=== PATIENT | male | born 1970 | race Caucasian/White ===

== ENCOUNTER 2019-01-17 15:17 | Inpatient (IN) | payer OTHER ==
[~2019-01-17] VITALS: Ht 182.9 cm; Wt 90.0 kg
[2019-01-17 15:30] LABS: BASOPHILS ABSOLUTE AUTO 0.13 K/mm3 (0.00-0.23); BASOPHILS PERCENT AUTO 1 % (0-2); EOSINOPHILS PERCENT AUTO 2 % (0-6); Hematocrit 47.5 % (37.0-53.0); IMMATURE GRAN ABSOLUTE AUTO 0.05 K/mm3 (0.00-0.10); IMMATURE GRAN PERCENT AUTO 0 % (0-1); LYMPHOCYTES ABSOLUTE AUTO 5.88 K/mm3 (0.84-5.20); LYMPHOCYTES PERCENT AUTO 47 % (21-46); MONOCYTES ABSOLUTE AUTO 1.07 K/mm3 (0.16-1.47); MONOCYTES PERCENT AUTO 9 % (4-13); Mean Corpuscular HGB 35.4 pg (26.0-34.0); Mean Corpuscular HGB Conc 33.7 g/dL (31.5-36.5); Mean Corpuscular Volume 105 fL (80-100); Mean Platelet Volume 8.9 fL (9.1-12.4); NEUTROPHILS ABSOLUTE AUTO 5.27 K/mm3 (1.96-9.15); NEUTROPHILS PERCENT AUTO 42 % (41-73); Platelet Count 256 K/mm3 (150-400); RDW Standard Deviation 50.4 fL (35.1-46.3); Red Blood Cell Count 4.52 M/mm3 (4.30-5.90)
[2019-01-17] MEDS ORDERED: Vitamin B Comple1 EA PO (15:40)
[2019-01-17] MEDS ORDERED: ASCO500 PO (15:40)
[2019-01-17 15:52] LABS: Alanine Aminotransfer (ALT/SGP 72 U/L (12-78); Albumin, Blood 3.1 g/dL (3.4-5.0); Albumin/Globulin Ratio 0.5 (0.8-1.8); Alk Phos 223 U/L (50-136); Anion Gap 8 mmol/L (6-16); Aspartate Aminotrans (AST/SGOT 198 U/L (12-37); Blood Urea Nitrogen 2 mg/dL (8-24); Bun/Creatinine Ratio 3.1 (12.0-20.0); CO2, Blood 25 mmol/L (21-32); Calcium, Blood 8.7 mg/dL (8.5-10.1); Chloride, Blood 106 mmol/L (98-108); Creatinine, Blood 0.65 mg/dL (0.60-1.20); Ethanol (Alcohol), Blood, Med 284 mg/dL; Glomerular Filtration Rate >60 (60-); Glucose, Blood 148 mg/dL (70-99); Potassium, Blood 3.5 mmol/L (3.5-5.5); Salicylate <1.7 mg/dL (2.8-20.0); Sodium, Blood 139 mmol/L (136-145); Total Protein, Blood 9.1 g/dL (6.4-8.2)
[2019-01-17 15:55] LABS: Acetaminophen, Random <2.0 ug/mL (10.0-30.0)
[2019-01-17 16:43] LABS: Source, Urine Clean Catch
[2019-01-17 16:46] LABS: Bilirubin, Urine Neg (Neg); Blood, Urine Neg (Neg); Glucose Qualitative, Urine Neg (Neg); Ketones, Urine Neg (Neg); Leukocyte Esterase, Urine Neg (Neg); Nitrite, Urine Neg (Neg); Protein, Urine Neg (Neg); Specific Gravity, Urine 1.005 (1.003-1.022); Urobilinogen, Urine NORM (Normal)
[2019-01-17 16:54] LABS: Appearance, Urine Clear (Clear); Color, Urine Yellow (P-Yellow)
[2019-01-17 16:58] LABS: U Amphetamine Screen Not Detected; U Barbituate Screen Not Detected; U Benzodiazapine Screen Not Detected; U Buprenorphine Screen Not Detected; U Cannabinoids Screen Not Detected; U Cocaine Screen Not Detected; U Methadone Screen Not Detected; U Methamphetamine Screen Not Detected; U Opiates Screen Not Detected; U Oxycodone Screen Not Detected; U Phencyclidine Screen Not Detected; U Propoxyphene Screen Not Detected
--- NOTE | 2019-01-17 18:41 | NUR ---
PT TRANSFERRED TO ROOM FROM ED. REMOTE MONITORING AND NURSING PACKING SHED SUPERVISOR HAVE BEEN NOTIFIED OF 2 MD HOLD PT. PT IS LETHARGIC BUT VSS. SATTING LOW 90S ON 3L. AT BEDSIDE AND HISTORY RECIEVED. STATES HE HAS NEVER DONE THIS BEFORE BUT HAS A HISTORY OF ALCOHOL AND DEPRESSION. CALL TO DR JUAREZ FOR ADMIT ORDERS, AWAITING CALL BACK.
--- NOTE | 2019-01-17 18:47 | NUR ---
CALL BACK TO ANSWERING SERVICE WHO STATES DR JUAREZ SAID HE WOULD CALL BACK
--- NOTE | 2019-01-17 19:00 | NUR ---
ASSUMED CARE ASSUMED CARE OF PATIENT. SLEEPING WHEN UNDISTURBED. ROUSES TO VERBAL STIMULI. MOVES SELF IN BED WITHOUT DIFFICULTY. DENIES C/O PAIN OR NAUSEA AT THIS TIME. DENIES SUICIDAL IDEATION/INTENT. MONITOR SHOWS NSR, RATE 70s. BP STABLE. REMAINS ON 3L NC WITH O2 SATS 96-97%. RESPIRATIONS EVEN AND UNLABORED AT THIS TIME. SEE SHIFT ASSESSMENT FOR FULL ASSESSMENT.
[2019-01-17 19:37] LABS: Anion Gap 7 mmol/L (6-16); Blood Urea Nitrogen 3 mg/dL (8-24); Bun/Creatinine Ratio 5.4 (12.0-20.0); CO2, Blood 24 mmol/L (21-32); Calcium, Blood 7.8 mg/dL (8.5-10.1); Chloride, Blood 113 mmol/L (98-108); Creatinine, Blood 0.55 mg/dL (0.60-1.20); Glomerular Filtration Rate >60 (60-); Glucose, Blood 98 mg/dL (70-99); Magnesium, Blood 2.1 mg/dL (1.6-2.4); Potassium, Blood 3.9 mmol/L (3.5-5.5); Sodium, Blood 144 mmol/L (136-145)
--- NOTE | 2019-01-17 20:55 | NUR ---
ETOH WITHDRAWAL/CALL TO PT IS WORRIED ABOUT STARTING ETOH WITHDRAWALS. CIWA 0 AT THIS TIME, BUT IS CONCERNED THAT WITHDRAWALS MAY START SOON. CALL TO DR. THOMAS- NEW ORDERS RECEIVED FOR LIBRIUM AND ATIVAN.
--- NOTE | 2019-01-17 22:00 | NUR ---
O2 PT VISITING WITH . SATS 97-98% ON 3L. O2 OFF AT THIS TIME AND SATS ARE 95-96%.
--- NOTE | 2019-01-17 22:44 | NUR ---
CIWA PT C/O FEELING ANXIOUS, NAUSEATED, AND TREMULOUS. CIWA SCORE IS 9 AT THIS TIME. MEDICATED WITH ATIVAN 2MG IV AND LIBRIUM 25MG PO. ALSO STATES THAT HE WANTS TO GO HOME AND WANTS TO KNOW WHAT THE PROCEDURE IS FOR DISCHARGE. PT INFORMED THAT HE IS ON A 2 MD HOLD AT THIS TIME AND WILL BE STAYING UNTIL RELEASED BY PHYSICIAN. PT STATES HE WILL BE COOPERATIVE WITH THAT.
[2019-01-17 23:32] LABS: Anion Gap 7 mmol/L (6-16); Blood Urea Nitrogen 3 mg/dL (8-24); Bun/Creatinine Ratio 4.8 (12.0-20.0); CO2, Blood 25 mmol/L (21-32); Calcium, Blood 7.9 mg/dL (8.5-10.1); Chloride, Blood 111 mmol/L (98-108); Creatinine, Blood 0.63 mg/dL (0.60-1.20); Glomerular Filtration Rate >60 (60-); Glucose, Blood 94 mg/dL (70-99); Potassium, Blood 3.8 mmol/L (3.5-5.5); Sodium, Blood 143 mmol/L (136-145)
--- NOTE | 2019-01-18 00:10 | NUR ---
O2 SATS/SLEEP APNEA PT IS SLEEPING. O2 SATS 88-89% ON RA. OCCASIONAL SHORT PERIODS OF APNEA NOTED. O2 BACK ON AT 2LNC.
[2019-01-18 06:11] LABS: Anion Gap 5 mmol/L (6-16); Blood Urea Nitrogen 4 mg/dL (8-24); Bun/Creatinine Ratio 6.3 (12.0-20.0); CO2, Blood 26 mmol/L (21-32); Calcium, Blood 7.8 mg/dL (8.5-10.1); Chloride, Blood 110 mmol/L (98-108); Creatinine, Blood 0.63 mg/dL (0.60-1.20); Glomerular Filtration Rate >60 (60-); Glucose, Blood 105 mg/dL (70-99); Potassium, Blood 3.8 mmol/L (3.5-5.5); Sodium, Blood 141 mmol/L (136-145)
--- NOTE | 2019-01-18 06:39 | NUR ---
SHIFT SUMMARY NO ACUTE CHANGES. SLEPT WHEN UNDISTURBED. ROUSES EASILY TO VERBAL STIMULI. CIWA BETWEEN 6-9 DURING SHIFT. UPPER EXTREMITY TREMORS NOTED. SKIN IS SLIGHTLY DIAPHORETIC. MEDICATED WITH ATIVAN 2MG IV X 1 DOSE AND LIBRIUM 25MG PO X 2 DOSES DURING SHIFT. REPOSITIONS SELF IN BED WITHOUT DIFFICULTY. STANDS AT BEDSIDE TO VOID. VSS. TOLERATED CLEAR LIQUID DIET. DENIES SUICIDAL IDEATION/INTENT T/O SHIFT. 2 MD HOLD CONTINUES. CAMERA REMAINS ON IN ROOM.
--- NOTE | 2019-01-18 09:01 | NUR ---
CARE ASSUMED CARE AND REPORT ASSUMED FROM SHREE MELCHOR. PT SLEEPING BUT EASILY AWAKENS. DENIES PAIN AT THIS TIME AND DENIES NAUSEA. CIWA 6; OBVIOUS TREMOR. DENIES HALLUCINATIONS. HE IS CALM AND COOPERATIVE. VISITED THIS AM FOR A BIT; PT HAD NO AGITATION AFTER HER VISIT. AFEBRILE. VSS. NSR, HR 90S. TOLERATING CLEAR LIQUIDS. D5NS INFUSING AT 100 ML/HR PER ORDER. CALL LIGHT WITHIN REACH. PT A/O X 3. AWARE OF 2 MD HOLD. ALL LOOSE ITEMS REMOVED FROM ROOM. WILL CONTINUE TO MONITOR.
--- NOTE | 2019-01-18 10:30 | NUR ---
Patient is lying in bed and resting, he easily awakens to the sound of his name, Patient shares about his guilt over cheating on his . This opens a long conversation about his Jehovah Witness margaux, about emotional and spiritual wholeness and about oriental orthodox and forgiveness. Patient feels encouraged to open his lines of communication back with Jehovah in prayer and demonstates an understanding about the image and likeness of God placed on his life that is beyond poor choices he has made, the job he has of doesn't have and the status of his marriage. I pryaed with patient about these issues and patient voiced apreciation for the time and prayer. Patient displayed evidence of catharsis.
--- NOTE | 2019-01-18 12:02 | NUR ---
REASSESSMENT CIWA 6. PT HAS VISIBLE TREMOR. DENIES PAIN OR NAUSEA AT THIS TIME. NSR, HR 80S. SPO2 96% ON RA. DIET ADVANCED AND PT SITTING UP IN BED EATING; NO RISK OF ASPIRATION AT THIS TIME. LIBRIUM PO GIVEN AT 1100. A/O X3. VISITING PERIODICALLY. WILL CONTINUE TO MONITOR.
--- NOTE | 2019-01-18 16:24 | NUR ---
REASSESSMENT PT VISITED WITH ARI BOUDREAUX NP THIS AFTERNOON. HE IS CALM AND COOPERATIVE AT THIS TIME. CIWA 9. C/O HEADAHCE AND TREMORS. AWAITING RETURN PHONE CALL FROM MD THOMAS ABOUT PAIN MEDS AND MIV FLUID DISCONTINUATION. PT EATING/DRINKING WITHOUT DIFFICULTY. AWAITING SHOWER. VSS. AFEBRILE. WILL CONTINUE TO [facility].
--- NOTE | 2019-01-18 18:17 | NUR ---
SHIFT SUMMARY PT REMAINED IN ROOM ENTIRE SHIFT EXCEPT FOR WHEN RECIEVED SHOWER. CALM AND COOPERATIVE ENTIRE SHIFT. VISITED BY FEW TIMES DURING SHIFT. EVALUATED BY DREW BOUDREAUX NP THIS AFTERNOON. PT REMAINS ON 2 MD HOLD. DIET ADVANCED TO REGULAR DIET. D5 MIV DISCONTINUED. PT AMBULATED TO SHOWER WITH MINIMAL ASSIST. HAS HAD OBVIOUS TREMOR IN BUE. RECEIVED LIBRIUM X 1 DURING SHIFT. VSS ENTIRE SHIFT. UPDATED POISON CONTROL THIS AFTERNOON WHO STATED THEY ARE SIGNING OFF CASE SINCE PT IS CLINICALLY DOING WELL AT THIS TIME, EXCEPT FOR ETOH WITHDRAWAL. MONITORED BY CAMERA. WILL GIVE BEDSIDE, HANDOFF REPORT TO SHALOM RN.
--- NOTE | 2019-01-18 19:30 | NUR ---
ASSUMED CARE PT RESTING QUIETLY IN BED, REPORTING MORSE BUT IS AWAKE AND ALERT TO ALL BUT DATE, NO TREMORS OR REPORTED NAUSEA. AFFECT FLAT BUT PT COOPERATIVE. FAMILY IN ROOM AND ASKING ABOUT WHEN DR JUAREZ MAY ARRIVE BUT ACCORDING TO AM RN HE WAS ALREADY IN TODAY AND UNSURE IF HE PLANS TO RETURN TONIGHT. VSS, ECG SHOWS SR WITH NARROW QRS AND QTC AT 0.46 SEC. DISCUSSED LIBRIUM USE TONIGHT AND PT AGREES TO TAKE ONCE DONE VISITING WITH FAMILY.
--- NOTE | 2019-01-19 06:26 | NUR ---
SHIFT SUMMARY NO ACUTE EVENTS OVERNIGHT. PT CONTINUES TO DENY SI AND HIS ONLY COMPLAINT OVERNIGHT WAS MORSE. PT MEDICATED WITH 50MG LIBRIUM AT HS D/T TREMORS AND MORSE WITH MAX CIWA SCORE FOR SHIFT OF 8. THIS AM, PT REPORTED CONTINUED MORSE AND FINE TREMORS AND WAS MEDICATED WITH 25MG LIBRIUM. VSS, ECG SHOWS SR W/ NARROW QRS AND QTC <0.50SEC, SPOT CHECK SPO2 LEVELS >95% ON RA.
--- NOTE | 2019-01-19 06:50 | NUR ---
DR MARTHA RIVERA HERE TO SEE PT, UPDATED ON CIWA SCORES.
--- NOTE | 2019-01-19 07:55 | NUR ---
PT AWAKE AND ALERT IN BED, AT BEDSIDE. DR THOMAS IN TO SEE; PT NOW MEDICAL FLOOR W/O TELE STATUS. 2MD HOLD IN PLACE. TELE REMOVED, UP AD YADIRA IN ROOM; INDEPENDENT. CIWA 10 FOR MODERATE TREMORS AND HEADACHE. PT CALM, APPROPRIATE, AND COOPERATIVE. DENIES S.I.
--- NOTE | 2019-01-19 11:13 | NUR ---
FIRE PRODUCTION OPERATOR FROM [facility] IN TO INTERVIEW PT R/T 2MD HOLD
--- NOTE | 2019-01-19 13:01 | NUR ---
REPORT GIVEN TO [facility] CELINE RN. PT TO BE TRANSFERED UP SHORTLY IN STABLE CONDITION.
--- NOTE | 2019-01-19 13:30 | NUR ---
PATIENT TRANSFERRED FROM ICU 3 TO ROOM 344. REPORTS RECEIVED FROM JILL SHEPPARD. PATIENT IS CALM AND COOPERATIVE, INDEPENDENT IN ROOM. VSS, ON RA. DENIES ANY SI AT THIS TIME. CURRENTLY ON A 2 MD HOLD. SI PRECAUTIONS IN PLACE AND ROOM ENVIRONMENT CHECKLIST HAS BEEN COMPLETED BY CHARGE NURSE MARK. PATIENT CIWA SCORE OF 6 AT THIS TIME. PATIENT ORIENTED TO ROOM AND USE OF CALL LIGHT.
--- NOTE | 2019-01-19 23:11 | NUR ---
01/19/191939 PT SARA IS AN 9. PT DOES NOT WANT HIS LIBRIUM YET, WAITING FOR PHONE CALLS FEELS OKAY AT THIS TIME. WILL MONITOR CLOSELY.
--- NOTE | 2019-01-20 11:13 | NUR ---
Patient is sleeping but easily awakens to the sound of his name. Patient openly speaks of his desire to to be discharged, of his concerns about having his suicide attempt as a strike against him in relationships and his jobs and of his ability to think well of himself moving forward. We talk about the importance of being intentional about pursuing wholeness for spirit, mind and body, about his resources and coping skills and about exploring sources of dignity and value that is deeper than the job he has or the roles he plays. Conversation is cut short as Bubba Bernal enters the room.
--- NOTE | 2019-01-20 12:06 | NUR ---
spoke with the patient and her friends who brought her in food about the patient's current diet and will express the concerns of what is a goal for the atient at this time. dietitian has also consulted with the patient while friends were in the room. she was shut down by the friends as they expressed what they brought in as the patient's favorite food.
[2019-01-20] MEDS ORDERED: ESCI10 PO (13:24)
--- NOTE | 2019-01-20 13:47 | NUR ---
DISCHARGE SUMMARY PATIENT IS PLEASANT ABOUT DISCHARGE, INFORMATION GIVEN TO HIM AND HIS . ALL PRINTOUTS GIVEN AND ASSESSED THAT THE PATIENT IS NO LONGER HAVING SUICIDAL THOUGHTS PRIOR TO DISCHARGE. PATIENT RECEPTIVE TO INFORMATION. STUFF UNLOCKED AND RETURNED TO THE PATIENT. PATIENT WALKED OUT WITH HIS , HE WAS STEADY ON HIS FEET.
== END 2019-01-20 13:47 | disposition home or self-care (01) | DRG 918 ==
LOC: ER 15:17 → ICUW 15:33 → ICUE 15:33 → MEDS 01-19 13:19
PROVIDERS: Emergency Medicine; ADMIT Family Medicine
DX: T45.0X2A Poisoning by antiallergic and antiemetic drugs, intentional self-harm, initial encounter (principal); F32.2 Major depressive disorder, single episode, severe without psychotic features; F10.239 Alcohol dependence with withdrawal, unspecified
CPT/HCPCS: 36415; 80048; 80053; 81003; 82330; 83735; 84443; 85025; 93005; 93010; 96361; 96374; 99285-25; G0480; J1650; J2060; J2405; J7030; J7042

== ENCOUNTER 2019-12-26 10:02 | Inpatient (IN) | payer SELFPAY ==
[~2019-12-26] VITALS: Ht 188 cm; Wt 93.0 kg
[~2019-12-26 10:02] MED LIST: ASCO500 PO; ESCI10 PO; Vitamin B Comple1 EA PO
[2019-12-26 10:43] LABS: Source, Urine Clean Catch
[2019-12-26 10:57] LABS: Blood, Urine 2+ (Neg); Glucose Qualitative, Urine Neg (Neg); Ketones, Urine 3+ (Neg); Leukocyte Esterase, Urine 1+ (Neg); Nitrite, Urine Pos (Neg); Protein, Urine 2+ (Neg); Urobilinogen, Urine 4+ (Normal); pH, Urine 6.5 (5.0-8.0)
[2019-12-26 11:31] LABS: International Normalized Ratio 2.2; Prothrombin Time Results 22.5 Sec (9.7-11.5)
[2019-12-26 11:34] LABS: Appearance, Urine Hazy (Clear); Bilirubin, Urine 3+ (Neg); Color, Urine Amber (P-Yellow)
[2019-12-26 11:47] LABS: Acetaminophen, Random <2.0 ug/mL (10.0-30.0); Salicylate <1.7 mg/dL (2.8-20.0)
[2019-12-26 12:06] LABS: BASOPHILS ABSOLUTE AUTO 0.12 K/mm3 (0.00-0.23); BASOPHILS PERCENT AUTO 1 % (0-2); EOSINOPHILS ABSOLUTE AUTO 0.08 K/mm3 (0.00-0.68); EOSINOPHILS PERCENT AUTO 1 % (0-6); Hemoglobin 14.6 g/dL (13.5-17.5); IMMATURE GRAN ABSOLUTE AUTO 0.25 K/mm3 (0.00-0.10); IMMATURE GRAN PERCENT AUTO 2 % (0-1); LYMPHOCYTES ABSOLUTE AUTO 2.36 K/mm3 (0.84-5.20); LYMPHOCYTES PERCENT AUTO 18 % (21-46); MONOCYTES ABSOLUTE AUTO 1.88 K/mm3 (0.16-1.47); MONOCYTES PERCENT AUTO 14 % (4-13); Mean Corpuscular HGB Conc 35.6 g/dL (31.5-36.5); Mean Corpuscular Volume 98 fL (80-100); Mean Platelet Volume 10.7 fL (9.1-12.4); NEUTROPHILS PERCENT AUTO 65 % (41-73); NRBC ABSOLUTE 0.02 K/mm3 (0.00-0.02); NRBC Auto 0.1 /100 WBC (0.0-0.2); Platelet Count 206 K/mm3 (150-400); RDW Coefficient Variation 21.2 % (11.7-14.2); RDW Standard Deviation 74.4 fL (35.1-46.3); Red Blood Cell Count 4.17 M/mm3 (4.30-5.90); White Blood Cell Count 13.39 K/mm3 (4.00-11.30)
[2019-12-26 12:44] LABS: Alanine Aminotransfer (ALT/SGP 87 U/L (12-78); Albumin, Blood 2.1 g/dL (3.4-5.0); Albumin/Globulin Ratio 0.4 (0.8-1.8); Alk Phos 209 U/L (50-136); Anion Gap 5 mmol/L (6-16); Aspartate Aminotrans (AST/SGOT 279 U/L (12-37); Bilirubin, Total 17.2 mg/dL (0.1-1.0); Blood Urea Nitrogen 9 mg/dL (8-24); Bun/Creatinine Ratio 12.5 (12.0-20.0); CO2, Blood 30 mmol/L (21-32); Calcium, Blood 7.6 mg/dL (8.5-10.1); Chloride, Blood 96 mmol/L (98-108); Creatinine, Blood 0.72 mg/dL (0.60-1.20); Globulin, Blood 4.7 g/dL (2.2-4.0); Glomerular Filtration Rate >60 (60-); Glucose, Blood 92 mg/dL (70-99); Potassium, Blood 3.1 mmol/L (3.5-5.5); Sodium, Blood 131 mmol/L (136-145); Total Protein, Blood 6.8 g/dL (6.4-8.2)
--- NOTE | 2019-12-26 16:44 | NUR ---
DR CASPER IN TO SEE PT. OKAYED REGULAR DIET. CALLED DR MERCADO, PT H/ACHE, OKAYED TYLENOL 500 MG Q8P PO
--- NOTE | 2019-12-26 17:56 | NUR ---
PT PLEASANT SINCE ADMIT. TALKATIVE. PAIN MANAGED WITH TYLENOL. DR CASPER STARTED ON REGULAR DIET. PT IS JAUNDICED. DR CASPER HAS SEEN HIM. NO OTHER CONCERNS AT THIS TIME. BED IN LOW POSITION, CALL LITE IN REACH, CALLS APPROP
[2019-12-27 06:15] LABS: BASOPHILS ABSOLUTE AUTO 0.14 K/mm3 (0.00-0.23); BASOPHILS PERCENT AUTO 1 % (0-2); EOSINOPHILS ABSOLUTE AUTO 0.17 K/mm3 (0.00-0.68); EOSINOPHILS PERCENT AUTO 2 % (0-6); Hematocrit 35.1 % (37.0-53.0); Hemoglobin 12.4 g/dL (13.5-17.5); IMMATURE GRAN ABSOLUTE AUTO 0.19 K/mm3 (0.00-0.10); IMMATURE GRAN PERCENT AUTO 2 % (0-1); LYMPHOCYTES ABSOLUTE AUTO 3.02 K/mm3 (0.84-5.20); LYMPHOCYTES PERCENT AUTO 27 % (21-46); MONOCYTES ABSOLUTE AUTO 1.68 K/mm3 (0.16-1.47); MONOCYTES PERCENT AUTO 15 % (4-13); Mean Corpuscular HGB 34.9 pg (26.0-34.0); Mean Corpuscular HGB Conc 35.3 g/dL (31.5-36.5); Mean Corpuscular Volume 99 fL (80-100); Mean Platelet Volume 10.1 fL (9.1-12.4); NEUTROPHILS ABSOLUTE AUTO 6.08 K/mm3 (1.96-9.15); NEUTROPHILS PERCENT AUTO 54 % (41-73); Platelet Count 173 K/mm3 (150-400); RDW Coefficient Variation 20.8 % (11.7-14.2); RDW Standard Deviation 75.7 fL (35.1-46.3); Red Blood Cell Count 3.55 M/mm3 (4.30-5.90); White Blood Cell Count 11.28 K/mm3 (4.00-11.30)
[2019-12-27 06:41] LABS: Magnesium, Blood 2.1 mg/dL (1.6-2.4)
[2019-12-27 06:43] LABS: Alanine Aminotransfer (ALT/SGP 80 U/L (12-78); Albumin, Blood 1.9 g/dL (3.4-5.0); Albumin/Globulin Ratio 0.4 (0.8-1.8); Alk Phos 188 U/L (50-136); Anion Gap 7 mmol/L (6-16); Aspartate Aminotrans (AST/SGOT 248 U/L (12-37); Bilirubin, Total 16.5 mg/dL (0.1-1.0); Blood Urea Nitrogen 7 mg/dL (8-24); Bun/Creatinine Ratio 10.6 (12.0-20.0); CO2, Blood 27 mmol/L (21-32); Calcium, Blood 7.4 mg/dL (8.5-10.1); Chloride, Blood 99 mmol/L (98-108); Creatinine, Blood 0.66 mg/dL (0.60-1.20); Globulin, Blood 4.3 g/dL (2.2-4.0); Glomerular Filtration Rate >60 (60-); Glucose, Blood 100 mg/dL (70-99); HDL Cholesterol 7 mg/dL (>39); Potassium, Blood 2.9 mmol/L (3.5-5.5); Sodium, Blood 133 mmol/L (136-145); Total Protein, Blood 6.2 g/dL (6.4-8.2); Triglycerides 168 mg/dL (30-160); Very Low Density Lipoprot Chol 33 mg/dL (6-32)
[2019-12-27 07:03] LABS: CHOL/HDL RATIO Unable to Calculate; Cholesterol <50 mg/dL (50-200); LDL/HDL RATIO Unable to Calculate; Low Density Lipoprotein Chol Unable to Calculate mg/dL (0-110)
--- NOTE | 2019-12-27 07:29 | NUR ---
END OF SHIFT SUMMARY Slept well after taking 15mg restoril around 2200. Patient had complaint of nagging abd. pain, however did not want to take any further tylenol at this time. A&OX4, independent and cooperative with staff. looking forward to getting home to his family
[2019-12-27 12:07] LABS: Antinuclear Antibody Screen Negative (Negative)
--- NOTE | 2019-12-27 16:24 | NUR ---
SHIFT SUMMARY PT DENIES PAIN, NAUSEA, SOB THIS SHIFT. PT RECEIVED NEW ORDER OF LIBRIUM TODAY AND REPORTED IMPROVEMENT OF SHAKINESS. PLANS FOR DISCHARGE TOMORROW. NO ACUTE CHANGES THIS SHIFT. PT IN BED, CALL LIGHT IN REACH.
[2019-12-27 22:09] LABS: HBSAG SCREEN Negative (Negative); HEP A AB, IGM Negative (Negative); HEP B CORE AB, TOT Negative (Negative); HEP C VIRUS AB 0.1 (0.0-0.9)
[2019-12-28 05:08] LABS: BASOPHILS ABSOLUTE AUTO 0.19 K/mm3 (0.00-0.23); BASOPHILS PERCENT AUTO 2 % (0-2); EOSINOPHILS PERCENT AUTO 2 % (0-6); Hematocrit 39.3 % (37.0-53.0); Hemoglobin 13.3 g/dL (13.5-17.5); IMMATURE GRAN ABSOLUTE AUTO 0.42 K/mm3 (0.00-0.10); IMMATURE GRAN PERCENT AUTO 3 % (0-1); LYMPHOCYTES ABSOLUTE AUTO 3.46 K/mm3 (0.84-5.20); LYMPHOCYTES PERCENT AUTO 28 % (21-46); MONOCYTES ABSOLUTE AUTO 1.64 K/mm3 (0.16-1.47); MONOCYTES PERCENT AUTO 13 % (4-13); Mean Corpuscular HGB Conc 33.8 g/dL (31.5-36.5); Mean Corpuscular Volume 101 fL (80-100); Mean Platelet Volume 10.5 fL (9.1-12.4); NEUTROPHILS PERCENT AUTO 52 % (41-73); NRBC ABSOLUTE 0.03 K/mm3 (0.00-0.02); NRBC Auto 0.2 /100 WBC (0.0-0.2); Platelet Count 202 K/mm3 (150-400); RDW Coefficient Variation 21.6 % (11.7-14.2); RDW Standard Deviation 79.4 fL (35.1-46.3); Red Blood Cell Count 3.91 M/mm3 (4.30-5.90); White Blood Cell Count 12.31 K/mm3 (4.00-11.30)
[2019-12-28 05:38] LABS: Alanine Aminotransfer (ALT/SGP 93 U/L (12-78); Albumin, Blood 2.1 g/dL (3.4-5.0); Albumin/Globulin Ratio 0.4 (0.8-1.8); Alk Phos 220 U/L (50-136); Anion Gap 6 mmol/L (6-16); Aspartate Aminotrans (AST/SGOT 267 U/L (12-37); Blood Urea Nitrogen 6 mg/dL (8-24); Bun/Creatinine Ratio 9.1 (12.0-20.0); CO2, Blood 27 mmol/L (21-32); Calcium, Blood 7.5 mg/dL (8.5-10.1); Chloride, Blood 100 mmol/L (98-108); Creatinine, Blood 0.66 mg/dL (0.60-1.20); Globulin, Blood 4.8 g/dL (2.2-4.0); Glomerular Filtration Rate >60 (60-); Glucose, Blood 91 mg/dL (70-99); Potassium, Blood 3.5 mmol/L (3.5-5.5); Sodium, Blood 133 mmol/L (136-145); Total Protein, Blood 6.9 g/dL (6.4-8.2)
--- NOTE | 2019-12-28 07:11 | NUR ---
SHIFT SUMMARY PATIENT ALERT AND ORIENTED. DID NOT SLEEP WELL OVERNIGHT DUE TO UPPER ABDOMINAL PAIN WAKING HIM UP. IV PATENT AND FLUSHED. BED IN LOWEST POSITION WITH WHEELS LOCKED. CALL LIGHT AND BELONGINGS WITHIN REACH. REPORT GIVEN TO ONCOMING RN.
--- NOTE | 2019-12-28 07:49 | NUR ---
12/28/19 0749 Latasha Bridges History, Chart, Medications and Allergies reviewed before start of procedure.PATIENT DETERMINED TO BE ASA APPROPRIATE FOR PROPOFOL SEDATION PRIOR TO START OF PROCEDURE BY .MONITOR INTACT WITH CONTINUOUS PULSE OXIMETRY AND INTERMITTENT BP.3-LEAD EKG REVIEWED WITH PHYSICIAN PRIOR TO START OF PROCEDURE.O2 VIA N/C INTACT THROUGHOUT SEDATION/PROCEDURE.
--- NOTE | 2019-12-28 10:18 | NUR ---
PATIENT RETURNED FROM [facility] AT 0755. HE WAS A BIT DROWSY AND SLEPT FOR QUITE A BIT. WOKE UP AT ABOUT 0940 DUE TO A INCOMING PHONE CALL AND REQUESTED SOME BREAKFAST AND ATE AND TOOK HIS AM MEDS. O2 LEVELS SEEM TO HOVER AROUND 90 ON RA.
--- NOTE | 2019-12-28 17:26 | NUR ---
PATIENT RECOVERED WELL FROM HIS UPPER ENDOSCOPY THIS MORNING. VITALS HAVE BEEN STABLE. THE PATIENT HAS BEEN RESTING IN HIS ROOM. DENIES PAIN AND DISCOMFORT. THE PLAN IS TO KEEP THIS PATIENT FOR ANOTHER NIGHT FOR MONITORING D/T ELEVATED BILIRUBIN LEVELS. WILL CONTINUE TO MONITOR AND PROVIDE CARE NEEDED.
[2019-12-29 05:33] LABS: BASOPHILS ABSOLUTE AUTO 0.16 K/mm3 (0.00-0.23); BASOPHILS PERCENT AUTO 1 % (0-2); EOSINOPHILS ABSOLUTE AUTO 0.23 K/mm3 (0.00-0.68); EOSINOPHILS PERCENT AUTO 2 % (0-6); Hematocrit 39.7 % (37.0-53.0); Hemoglobin 13.7 g/dL (13.5-17.5); IMMATURE GRAN ABSOLUTE AUTO 0.47 K/mm3 (0.00-0.10); IMMATURE GRAN PERCENT AUTO 4 % (0-1); LYMPHOCYTES ABSOLUTE AUTO 3.49 K/mm3 (0.84-5.20); LYMPHOCYTES PERCENT AUTO 29 % (21-46); MONOCYTES PERCENT AUTO 13 % (4-13); Mean Corpuscular HGB 34.9 pg (26.0-34.0); Mean Corpuscular HGB Conc 34.5 g/dL (31.5-36.5); Mean Corpuscular Volume 101 fL (80-100); Mean Platelet Volume 9.7 fL (9.1-12.4); NEUTROPHILS ABSOLUTE AUTO 6.01 K/mm3 (1.96-9.15); NEUTROPHILS PERCENT AUTO 51 % (41-73); NRBC ABSOLUTE 0.04 K/mm3 (0.00-0.02); NRBC Auto 0.3 /100 WBC (0.0-0.2); Platelet Count 194 K/mm3 (150-400); RDW Coefficient Variation 21.4 % (11.7-14.2); Red Blood Cell Count 3.92 M/mm3 (4.30-5.90); White Blood Cell Count 11.86 K/mm3 (4.00-11.30)
[2019-12-29 05:58] LABS: Alanine Aminotransfer (ALT/SGP 97 U/L (12-78); Albumin/Globulin Ratio 0.4 (0.8-1.8); Alk Phos 203 U/L (50-136); Anion Gap 5 mmol/L (6-16); Aspartate Aminotrans (AST/SGOT 251 U/L (12-37); Bilirubin, Total 17.2 mg/dL (0.1-1.0); Blood Urea Nitrogen 7 mg/dL (8-24); Bun/Creatinine Ratio 9.6 (12.0-20.0); CO2, Blood 26 mmol/L (21-32); Calcium, Blood 7.8 mg/dL (8.5-10.1); Chloride, Blood 102 mmol/L (98-108); Creatinine, Blood 0.73 mg/dL (0.60-1.20); Globulin, Blood 4.9 g/dL (2.2-4.0); Glomerular Filtration Rate >60 (60-); Glucose, Blood 95 mg/dL (70-99); Potassium, Blood 3.6 mmol/L (3.5-5.5); Sodium, Blood 133 mmol/L (136-145); Total Protein, Blood 6.9 g/dL (6.4-8.2)
--- NOTE | 2019-12-29 06:01 | NUR ---
SHIFT SUMMARY PATIENT ALERT AND ORIENTED. MOVING INDEPENDENTLY AROUND HIS ROOM. PATIENT STATED THAT HE WAS ABLE TO GET GOOD SLEEP OVERNIGHT. IV PATENT AND FLUSHED. BED IN LOWEST POSITION WITH WHEELS LOCKED. CALL LIGHT AND BELONGINGS WITHIN REACH. REPORT GIVEN TO ONCOMING RN.
--- NOTE | 2019-12-29 17:49 | NUR ---
NO ACUTE CHANGES TO PT. HE IS STILL ATTEMPTING TO HAVE BM. BOWEL CARE HAS BEEN PROVIDED. PT HAS BEEN ENCOURAGED TO WALK. BOWL SOUNDS ACTIVE. CALL LIGHT WITHIN REACH.
--- NOTE | 2019-12-30 05:46 | NUR ---
TILE ERECTOR SUMMARY A&OX4, up independently in room. Complaints of RLQ pain in evening, which was lessened after changine positions and warm blanket set over the RLQ. Questions about when he will be discharged and outpatient GI follow up
[2019-12-30 05:57] LABS: Alanine Aminotransfer (ALT/SGP 85 U/L (12-78); Albumin, Blood 1.8 g/dL (3.4-5.0); Albumin/Globulin Ratio 0.4 (0.8-1.8); Alk Phos 187 U/L (50-136); Anion Gap 5 mmol/L (6-16); Aspartate Aminotrans (AST/SGOT 212 U/L (12-37); Bilirubin, Total 14.9 mg/dL (0.1-1.0); Blood Urea Nitrogen 6 mg/dL (8-24); CO2, Blood 24 mmol/L (21-32); Calcium, Blood 7.5 mg/dL (8.5-10.1); Chloride, Blood 104 mmol/L (98-108); Globulin, Blood 4.5 g/dL (2.2-4.0); Glomerular Filtration Rate >60 (60-); Glucose, Blood 98 mg/dL (70-99); Potassium, Blood 3.3 mmol/L (3.5-5.5); Sodium, Blood 133 mmol/L (136-145); Total Protein, Blood 6.3 g/dL (6.4-8.2)
[2019-12-30] MEDS ORDERED: DOCU100 PO (11:56)
[2019-12-30] MEDS ORDERED: PANT40 PO (11:56)
[2019-12-30] MEDS ORDERED: POLYETHYLENE G500 G1 PO (11:57)
[2019-12-30] MEDS ORDERED: SENN187 PO (11:57)
[2019-12-30] MEDS ORDERED: SIME80CH PO (11:58)
--- NOTE | 2019-12-30 12:20 | NUR ---
DISCHARGE INSTRUCTIONS WRITTEN AND DISCUSSED WITH PT EXPRESSING UNDERSTANDING. SCRIPT FAXED AND CALLED TO [facility]. TO [facility] VIA W/C.
== END 2019-12-30 12:16 | disposition home or self-care (01) | DRG 433 ==
LOC: ER 10:02 → MEDS 14:02
PROVIDERS: Emergency Medicine; Internal Medicine; ADMIT Internal Medicine
PROC: 0DJ08ZZ Inspection of Upper Intestinal Tract, Via Natural or Artificial Opening Endoscopic (ICD-10-PCS; principal; 2019-12-26)
DX: K70.10 Alcoholic hepatitis without ascites (principal); K76.6 Portal hypertension; K70.30 Alcoholic cirrhosis of liver without ascites; E87.6 Hypokalemia; F10.11 Alcohol abuse, in remission; E80.6 Other disorders of bilirubin metabolism
CPT/HCPCS: 36415; 74177; 76705; 80053; 80061; 82140; 82247; 82390; 82728; 83516; 83690; 83735; 84443; 85025; 85610; 85730; 86038; 86644; 86645; 86704; 86708; 86803; 86850; 86900; 86901; 87086; 87340; 93005; 93010; 96360-59; 96361; 99285-25; A9270; A9270-GY; G0480; J2405; J2704; J7030; J7120; Q9967

== ENCOUNTER 2020-06-26 11:45 | Observation (INO) | payer OTHER ==
[~2020-06-26] VITALS: Ht 188 cm; Wt 95.5 kg
[~2020-06-26 11:45] MED LIST changes: +ARIPIPRAZOLE2 M1 PO; +CEPH500 PO; +DOCU100 PO; +HYDHCL25 PO; +ONDA4ODT PO; +PANT20 PO; +PANT40 PO; +POLYETHYLENE G500 G1 PO; +POTCHL20ER PO; +SENN187 PO; +SIME80CH PO; +VISBIOME PROBIOTIC PO
[2020-06-26 12:42] LABS: Hematocrit 37.2 % (37.0-53.0); Hemoglobin 12.7 g/dL (13.5-17.5); Mean Corpuscular HGB 35.1 pg (26.0-34.0); Mean Corpuscular HGB Conc 34.1 g/dL (31.5-36.5); Mean Corpuscular Volume 103 fL (80-100); Mean Platelet Volume 9.5 fL (9.1-12.4); NRBC ABSOLUTE 0.07 K/mm3 (0.00-0.02); NRBC Auto 0.5 /100 WBC (0.0-0.2); Platelet Count 151 K/mm3 (150-400); RDW Coefficient Variation 18.4 % (11.7-14.2); RDW Standard Deviation 65.1 fL (35.1-46.3); Red Blood Cell Count 3.62 M/mm3 (4.30-5.90); White Blood Cell Count 14.97 K/mm3 (4.00-11.30)
[2020-06-26 13:30] LABS: Alanine Aminotransfer (ALT/SGP 63 U/L (12-78); Albumin, Blood 2.2 g/dL (3.4-5.0); Albumin/Globulin Ratio 0.5 (0.8-1.8); Alk Phos 221 U/L (50-136); Anion Gap 7 mmol/L (6-16); Aspartate Aminotrans (AST/SGOT 196 U/L (12-37); Bilirubin, Total 31.1 mg/dL (0.1-1.0); Blood Urea Nitrogen 11 mg/dL (8-24); Bun/Creatinine Ratio 14.6 (12.0-20.0); CO2, Blood 23 mmol/L (21-32); Calcium, Blood 8.3 mg/dL (8.5-10.1); Chloride, Blood 106 mmol/L (98-108); Creatinine, Blood 0.76 mg/dL (0.60-1.20); Globulin, Blood 4.8 g/dL (2.2-4.0); Glomerular Filtration Rate >60 (60-); Glucose, Blood 114 mg/dL (70-99); Potassium, Blood 3.4 mmol/L (3.5-5.5); Sodium, Blood 136 mmol/L (136-145)
[2020-06-26 13:35] LABS: Source, Urine Clean Catch
[2020-06-26 13:46] LABS: BAND PERCENT MAN 4 % (0-8); BASOPHILS ABSOLUTE MAN 0.29 K/mm3 (0.00-0.23); BASOPHILS PERCENT MAN 2 % (0-2); EOSINOPHILS PERCENT MAN 0 % (0-6); LYMPHOCYTES ABSOLUTE MAN 3.59 K/mm3 (0.84-5.20); LYMPHOCYTES PERCENT MAN 24 % (21-46); METAMYELOCYTE ABSOLUTE MAN 0.59 K/mm3 (0.00-0.00); METAMYELOCYTE PERCENT MAN 4 % (0-0); MONOCYTES ABSOLUTE MAN 1.49 K/mm3 (0.16-1.47); MONOCYTES PERCENT MAN 10 % (4-13); NEUTROPHILS ABSOLUTE MAN 8.98 K/mm3 (1.96-9.15); SEG NEUTROPHILS PERCENT MAN 56 % (41-73); TOTAL CELLS COUNTED 100
[2020-06-26 13:54] LABS: Appearance, Urine Clear (Clear); Blood, Urine 1+ (Neg); Glucose Qualitative, Urine Neg (Neg); Ketones, Urine 1+ (Neg); Leukocyte Esterase, Urine 1+ (Neg); Nitrite, Urine Neg (Neg); Protein, Urine 1+ (Neg); Urobilinogen, Urine 4+ (Normal); pH, Urine 6.5 (5.0-8.0)
[2020-06-26 13:56] LABS: Bilirubin, Urine 3+ (Neg); Color, Urine Orange (P-Yellow)
[2020-06-26 14:24] LABS: Bacteria Few /hpf; Red Blood Cells, Urine 0-2 /hpf (0-2); Squamous Epithelial Cells Rare /hpf (Few)
[2020-06-26 14:30] LABS: White Blood Cells, Urine 0-2 /hpf (0-5)
[2020-06-26 14:32] LABS: Granular Casts Rare /lpf (0); Renal Epithelial Few /hpf (0-Rare); Transitional Epithelial Cells Few /hpf (0-Rare)
[2020-06-26 14:56] LABS: International Normalized Ratio 2.32; Prothrombin Time Results 23.7 Sec (9.7-11.5)
--- NOTE | 2020-06-26 17:16 | NUR ---
Pt returned to ER for increased abnominal distention and worsening symptoms. Pt states worsening headache, chaills and weakness he is now having some ringing in his ears. He compains aof mild dyspnea due to increased preassure from his abdomen. He is not tolerating food and no appetite. He has vomited he ahs not noteb blood in vomit just some in stool. He is expereinceing more incontinence. Minimal activity and has had falls and balance disturbance and difficulty bearing weight. His daughter is at bedside she had been leading most of his care. He also has a sixteen year old son. He has a but they recently . Discussed with daughter Advance care planning, prognosis, code status and getting a POA. Advised daughter to go start the medicaid process. She recently got him some food stamps. She asked about end of life what to do. We discussed possible trajectory of his disease and hospice. Gave her our office number to his nicanor and offered support. Advised ER physician of daughters questions he will follow up with prognosis and education.
--- NOTE | 2020-06-26 19:31 | NUR ---
pt arrived from er just before shift change, while giving bsr pt caught iv on blanket and removed it, cleaned up and noc nurse agreed to start a new iv, still NPO awaiting confirmation as to order, 2L via nc, pt watching tv and waiting for dinner
[2020-06-27 05:15] LABS: Hematocrit 33.4 % (37.0-53.0); Hemoglobin 11.6 g/dL (13.5-17.5)
[2020-06-27 05:32] LABS: International Normalized Ratio 2.42; Prothrombin Time Results 24.6 Sec (9.7-11.5)
[2020-06-27 06:30] LABS: Alanine Aminotransfer (ALT/SGP 55 U/L (12-78); Albumin, Blood 1.7 g/dL (3.4-5.0); Albumin/Globulin Ratio 0.4 (0.8-1.8); Alk Phos 180 U/L (50-136); Anion Gap 8 mmol/L (6-16); Aspartate Aminotrans (AST/SGOT 169 U/L (12-37); Bilirubin, Total 25.3 mg/dL (0.1-1.0); Blood Urea Nitrogen 11 mg/dL (8-24); CO2, Blood 22 mmol/L (21-32); Chloride, Blood 110 mmol/L (98-108); Creatinine, Blood 0.85 mg/dL (0.60-1.20); Globulin, Blood 4.1 g/dL (2.2-4.0); Glomerular Filtration Rate >60 (60-); Glucose, Blood 69 mg/dL (70-99); Potassium, Blood 3.3 mmol/L (3.5-5.5); Sodium, Blood 140 mmol/L (136-145); Total Protein, Blood 5.8 g/dL (6.4-8.2)
--- NOTE | 2020-06-27 06:33 | NUR ---
SUMMARY PT HAS REMAINED NPO T/O SHIFT. PT ONLY COMPLAINT IS BEING THRISTY AND FEELING WEAK. PT CALLED FOR A UPDATYE AND WOULD APPRECIATE CALL FROM PROVIDER. ALEXANDRE [phone]. PT HAS SLEPT MOST OF SHIFT. PT CURRENTLY SLEEPING IN NO DISTRESS. CALL LIGHT IN REACH.
--- NOTE | 2020-06-27 10:48 | NUR ---
Pt resting in bed upon arrival. Pt appears lethargic and skin jaundiced. Pt reports mild disomfort from abdominal distention. Engaged in therapeutic discussion regarding disease process. Educated on trajectory of disease and the importance of compliance. Difficult to assess how much Pt is able to process and retain due to lethargy. Ended visit to allow Pt to rest. Spoke with Bedside JILL Loya and discussed case. Plan is for Pt to D/C home today. Palliative Care will remain available.
--- NOTE | 2020-06-27 12:55 | NUR ---
Case Conference Note Spoke with Dr Whitfield and discussed case. Plan for Pt to D/C home today. Called and spoke with Pt's daughter Pema. Provided update and discussed D/C plan. Listened as Pema expresses concerns with Pt being D/C home. Pema reports Pt and his are with just recently moving out. Pema reports checking in on Pt just prior to this admission with Pt having significant confusion and had urinated in several areas of the home. Pema reports Pt often times needs assistance with bathing, dressing, and toileting. During more confused moments Pt requires assistance with transfers and ambulation. Discussed the need for caregiver assistance and considering applying for medicaid through [facility]. Pema reports on her way to [facility] as we speak on the phone. Provided gentle education on disease process including trajectory and the option for hospice. Pema expresses appreciation of information and still expresses concerns regarding Pt being D/C home today. Instructed concerns will be relayed to CM. No other concerns reported at this time. Spoke with Pt advocate Savannah who received a call from daughter Pema expressing same concerns regarding D/C home. Spoke with caremanfrancy Harmon. Relayed daughters concerns regarding unsafe D/C plan. Plan will still be to D/C Pt home today. Palliative Care will remain available.
--- NOTE | 2020-06-27 16:23 | NUR ---
Pal Care visit made to pt and his qiana, Remedios, per her request to explain and assist with completing an AD, POLST and durable power of tax associate attorney. We are able to provide the [place] durable power of tax associate attorney form and to notarize a completed one but Qiana informed that I could not advise her on how she should fill it out. Once Chevy was awake and able to participate in the conversation we did review the AD and POLSt in detail. I asked questions re: his wishes in many different ways because initially he seemed sl confused but once he was fully awake he was clear and consistent in choices when asked re: different scenarios and in different ways. He does not want his life or any suffering prolonged by CPR or intubation if he were to have resp or cardiac failure. He would want to consider artificial nutrition depending on the situation but would not want it as a life sustaining measure if he were to fall under any of the conditions listed on the AD form. His qiana and he will complete the AD after d/c. WE did complete a POLST today and notified of pt's request to be a DNR with limited tx as noted on POLST. He prefers no invasive respiratory support so would be a DNR/DNI. He may be willing to consider O2 or Bipap for resp support. Pt is jaundiced and seems aware of his advanced liver failure. His abdomen is distended and he appears uncomfortable when trying to move in bed. He requires assistance of two for bed mobility and repositioning and for ambulation or BRP/sitting at the side of the bed. Pt plans to go to his daughter's home on d/c planned tomorrow. BLAYNE working with pt/qiana also. Qiana has gone to [employer] and started process of applying for assistance. She is very young but appears very mature and level headed in her interactions with me and her dad. called with update on my visit. DNR order obtained and entered. RN updated on all of the above also. RN and aware POLST is at pt's room waiting for signature. I will see pt tomorrow for f/u and to get POLST to our EMR once signed so original can be sent home with him and Remedios. I would recommend f/u with HH due to new home for pt and PT recommendation. I believe BLAYNE is already working on this as part of dc plan.
--- NOTE | 2020-06-27 18:27 | NUR ---
SHIFT SUMMARY PT RESTING QUIETLY THIS AM AT START OF SHIFT. PT WOKE FOR CARE, WANTING WATER. PT NPO WHEN ADMITTED D/T SAFETY CONCERNS WHEN SWALLOWING PT WAS NOT AWAKE ENOUGH TO SAFELY TAKE PO. DR LLANOS NOTIFIED THIS AM FOR SWALLOW EVAL IF NEEDED SO PT COULD EAT OR DRINK. PT ASSISTED TO BTHRM BY PT, USING FWW. PT THEN AMBULATED BACK TO BED W/O ASSIST OR USING CALL LT. PT LATER TO CHAIR AT ; CHAIR ALARM PLACED. DR LLANOS LATER IN TO SEE PT, EXPLAINING PLAN OF CARE. D/C ORDERS PLACED. PT'S DAUGHTER CALLED TO DISCUSS PLAN OF CARE AND ANS QUESTIONS. MEDICAL ART THERAPIST NOTIFIED TO ASSIST WITH SAFE D/C PLANNING. PT TO GO HOME WITH H/H AND AND DAUGHTER TO ASSIST. DAUGHTER HERE TO VISIT ALL AFTERNOON. TO BE NOTIFIED TOMORROW WHEN D/C ARRANGEMENTS MADE. PT GIVEN ICE WATER AND DIET ORDERED THIS AM WHEN DR LLANOS NOTIFIED OF PT BEING AWAKE. PT UP WITH FWW AND SBA TO BTHRM NEEDED. PT IMPROVED THRU OUT THE DAY FROM AM. RESTING QUIETLY AT THIS TIME. PT VERY JAUNDICED; ETOH ABUSE WITH PT'S LAST DRINK [address] LLANOS ENCOURAGE PT TO STOP DRINKING. PT UNABLE TO BE PLACED ON TRANSPLANT LIST UNTIL AFTER [address] LLANOS SPOKE WITH PT'S DAUGHTER REGARDING D/C PLAN. DAUGHTER VERBALIZED UNDERSTANDING. CALL LT IN REACH. BED ALARM ON FOR SAFETY.
--- NOTE | 2020-06-28 03:15 | NUR ---
SUMMARY PT STILL REMAINS SOMNOLENT AND WEAK. PT IS SLOW TO RESPOND. PT DENIES ANY PAIN. PT HAS O2 VIA NC TO MAINTAIN SPO2. PT SLEPT T/O SHIFT. NO OTHER ISSUES NOTED. CALL LIGHT IN REACH AND BED ALARM ON FOR SAFETY.
--- NOTE | 2020-06-28 08:45 | NUR ---
Pal Care visit - F/u visit made to process POLST completed with pt yesterday. It has not been signed by physician yet but needs to be before being sent to medical records and given back to pt/delmy. Chevy made clear that Remedios, his delmy, will be his surrogate decision maker for medical and all other decisions. He is estranged from his current , Yuliana. Pt requested DNR/DNI status after an extensive conversation re: advanced care planning yesterday. Case conferenced with RN and CM this am re: need for POLST to be signed and copy sent to MR, d/c plan and durable power of energy attorney, that daughter was provided and is working on with pt yesterday. Plan remains for d/c home today with HH services and family care per daughter, Remedios.
[2020-06-28] MEDS ORDERED: FURO20 PO (11:48)
[2020-06-28] MEDS ORDERED: LACT PO (11:48)
[2020-06-28] MEDS ORDERED: OXYC5 PO (11:48)
[2020-06-28] MEDS ORDERED: B-1100 M1 PO (11:48)
--- NOTE | 2020-06-28 15:39 | NUR ---
PATIENT DISCHARGED TO HOME ACCOMPANIED BY HIS DAUGHTER CLAUDETTE. IV SALNE LOCK REMOVED WITHOUT INCIDENT. PT VERBALIZED UNDERSTANDING OF D/C INSTRUCTIONS, BUT THIS AUTHOR FELT THAT CLAUDETTE NEEDED TO FOLLOW UP. TOOK PT DOWNSTAIRS VIA W/C AND SPENT ~ 20 MINUTES DISCUSSING D/C INSTRUCTIONS WITH DAUGHTER AND GAVE HER HARD COPY OF RX FOR OXYCODONE, D/C INSTRUCTIONS, MEDICATION LIST, POLST AND COPIES, AND POWER OF MILKING WORKER PAPERWORK. SHE VERBALIZED UNDERSTANDING OF INSTRUCTIONS. PT OFF UNIT AT 1459.
--- NOTE | 2020-06-28 15:46 | NUR ---
NO BELONGINGS LEFT BEHIND IN ROOM.
== END 2020-06-28 14:49 | disposition home health service (06) ==
LOC: ER 11:45 → MEDS 16:43 → ENPENDDIS 06-28 09:49 → MEDS 06-28 14:49
PROVIDERS: Emergency Medicine; ADMIT Internal Medicine
DX: K70.11 Alcoholic hepatitis with ascites (principal); K70.31 Alcoholic cirrhosis of liver with ascites; F10.20 Alcohol dependence, uncomplicated; E87.6 Hypokalemia; R30.0 Dysuria; F41.8 Other specified anxiety disorders; E88.09 Other disorders of plasma-protein metabolism, not elsewhere classified; G43.909 Migraine, unspecified, not intractable, without status migrainosus; E46 Unspecified protein-calorie malnutrition; Z68.25 Body mass index [BMI] 25.0-25.9, adult; Z79.899 Other long term (current) drug therapy; Z23 Encounter for immunization; Z66 Do not resuscitate; Z74.01 Bed confinement status; Y90.0 Blood alcohol level of less than 20 mg/100 ml
CPT/HCPCS: 36415; 70450; 76705; 80053; 81001; 82140; 83690; 85014; 85018; 85025; 85610; 87086; 93005; 93010; 96374; 97110; 97116; 97162; 97165; 99285-25; A9270; C9113; G0480; J0696